=== PATIENT | male | born 1985 | race African-American/Black ===

== ENCOUNTER 2017-03-12 07:49 | Emergency (ER) | payer OTHER ==
[~2017-03-12] VITALS: Ht 180.3 cm; Wt 59.0 kg
[2017-03-12] MEDS ORDERED: ACYCLOVIR 400400 MG PO (08:45)
[2017-03-12 08:58] VITALS: BP 124/82
== END 2017-03-12 08:56 | disposition home or self-care (01) ==
LOC: ER 07:49
DX: B00.1 Herpesviral vesicular dermatitis (principal); F17.210 Nicotine dependence, cigarettes, uncomplicated

== ENCOUNTER 2017-04-15 19:24 | Emergency (ER) | payer OTHER ==
[~2017-04-15] VITALS: Ht 180.3 cm; Wt 59.9 kg
[~2017-04-15 19:24] MED LIST: ACYCLOVIR 400400 MG PO
[2017-04-15] MEDS ORDERED: COMPAZINE10 MG PO (21:03)
[2017-04-15] MEDS ORDERED: FLONASE 0.05%50 MCG NASAL (21:19)
[2017-04-15 22:09] VITALS: BP 121/73
== END 2017-04-15 22:09 | disposition home or self-care (01) ==
LOC: ER 19:24
DX: J30.9 Allergic rhinitis, unspecified (principal); F17.210 Nicotine dependence, cigarettes, uncomplicated; F10.99 Alcohol use, unspecified with unspecified alcohol-induced disorder